=== PATIENT | male | born 2000 | race Hispanic/Latino ===

== ENCOUNTER → 2023-08-09 | Emergency (ER) | payer SELFPAY ==
[2023-08-09 22:10] LABS: MCV 89.4 fL (80-100); MPV 6.6 fL (7.6-11.3); Platelets 321 thou/uL (152-406); RBC Red Blood Cell Count 4.59 M/uL (4.33-5.43)
--- NOTE | 2023-08-09 22:10 | RAD REPORT ---
EXAM DESCRIPTION: CT - Head Brain Wo Cont - 08/09/2023 10:01 pm CLINICAL HISTORY: Alteration of awareness/confusion COMPARISON: None TECHNIQUE: Computed axial tomography of the head was obtained. IV contrast was not requested. All CT scans are performed using dose optimization technique as appropriate and may include automated exposure control or mA/KV adjustment according to patient size. FINDINGS: An intracranial bleed is not seen The ventricles are normal in caliber No extra-axial fluid collection is noted. No significant hypodensity within the brain noted Marked frontal sinusitis IMPRESSION: No acute intracranial abnormality is seen If patient's symptoms persist MRI of the brain would be recommended
[2023-08-09 22:11] LABS: Protime INR 1.08
[2023-08-09 22:15] LABS: Barbiturates NEGATIVE (NEGATIVE); Benzodiazepines NEGATIVE (NEGATIVE); Cocaine NEGATIVE (NEGATIVE); METHAMPHETAM NEGATIVE (NEGATIVE); Methadone NEGATIVE (NEGATIVE); Opiates NEGATIVE (NEGATIVE); Phencyclidine NEGATIVE (NEGATIVE); THC Cannibis POSITIVE (NEGATIVE)
[2023-08-09 22:22] LABS: ALT/SGPT 34 U/L (16-61); AST/SGOT 20 U/L (15-37); Albumin 3.8 g/dL (3.4-5.0); Alkaline Phosphatase 70 U/L (45-117); BUN Blood Urea Nitrogen 7 mg/dL (7-18); Bicarbonate 24 mEq/L (21-32); Bilirubin Direct 0.1 mg/dL (0-0.2); Bilirubin Indirect, Calculated 0.2 mg/dL (0.2-0.8); Bilirubin Total 0.3 mg/dL (0.2-1.0); Glomerular Filtration Rate 104 ml/min (=/>90); Glucose Level 113 mg/dL (74-106); Potassium 3.7 mEq/L (3.5-5.1); Protein, Total 7.8 g/dL (6.4-8.2); Sodium Level 142 mEq/L (136-145)
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
[2023-08-10 06:42] VITALS: BP 112/68; TEMP 98; O2SAT 99
== END ==
LOC: ER 21:27
DX: F10.129 Alcohol abuse with intoxication, unspecified (principal); F12.10 Cannabis abuse, uncomplicated; J01.10 Acute frontal sinusitis, unspecified
CPT/HCPCS: 36415; 70450; 80048; 80076; 80143; 80179; 80307; 82077; 85025; 85610; 85730